=== PATIENT | female | born 1950 | race Caucasian/White ===

== ENCOUNTER → 2017-01-11 | Outpatient (CLI) | payer MEDICARE ==
[~2017-01-11] MED LIST: ACETAMINOPHEN PO; COSOPT1 UNI1 OU; FLEXERIL PO; LOVAZA1 G PO; LUMIGAN2.5 ML OU; MOTRIN IB200 M1 PO; PREMPRO 0.3 MG/1 TAB PO; TRICOR PO; ZETIA PO
--- NOTE | ~2017-01-11 | US77 ---
[facility] A Service of [facility] RADIOLOGY TEXT RESULTS PATIENT: HARIKA BOYKIN LOCATION: [facility] : 52 UNIT #: [id number] AGE: [address]: Gus Cruz MD SEX: F ORDER DR: [id number] [facility] [address] [place], [place] [address] [id number] O MR#: [id number] Acc #: [id number] NAME: HARIKA BOYKIN. : 1950 SEX: F STUDY DATE/TIME: 01/11/2017 14:13 UNIT: [facility] ROOM: STUDY DESCRIPTION: US Kidney Bilateral Complete Attending Physician: Gus Cruz M.D. Referring Physician: Gus Cruz M.D. Ordering Physician: Gus Cruz M.D. Primary Care Physician: Karthik Early Jr., M.D. MEDICAL IMAGING REPORT This report is preliminary unless electronic signature is present EXAM Renal ultrasound, 01/11/2017. HISTORY Right flank pain for 3 weeks. History of renal stones and lithotripsy August 2016, followup. FINDINGS The right kidney measured 12.2 cm, while the left kidney measured 13.7 cm in longitudinal dimensions. There is no evidence of hydronephrosis. There are nonobstructing right renal stones. There is a 1.4 cm cyst on the upper pole of the left kidney. No solid mass lesions are identified. There is normal renal cortical echogenicity. Images of the bladder are normal. IMPRESSION 1. Nonobstructing right renal stones. No evidence of hydronephrosis. 2. Left renal cyst. 3. Images of the bladder are normal. Dictated by... Mikey May M.D. THIS IS AN ELECTRONICALLY VERIFIED REPORT Mikey May M.D. at 01/12/2017 2:25 PM MIKALA/mami TD: 01/11/2017 15:29 JOB #: [id number] MEDICAL IMAGING REPORT [facility] A Service of [facility] RADIOLOGY TEXT RESULTS PATIENT: HARIKA BOYKIN LOCATION: [facility] ACC #: [id number] : 52 UNIT #: [id number] AGE: [address]: Gus Cruz MD SEX: F ORDER DR: Page 1 of 1 COPY
--- NOTE | ~2017-01-11 | CR7 ---
[facility] A Service of [facility] RADIOLOGY TEXT RESULTS PATIENT: HARIKA BOYKIN LOCATION: [facility] : 52 UNIT #: [id number] AGE: [address]: Gus Cruz MD SEX: F ORDER DR: [id number] [facility] [address] [place], [place] [address] [id number] O MR#: [id number] Acc #: [id number] NAME: HARIKA BOYKIN : 1950 SEX: F STUDY DATE/TIME: 01/11/2017 14:38 UNIT: [facility] ROOM: STUDY DESCRIPTION: CR Abdomen Single AP View Attending Physician: Gus Cruz M.D. Referring Physician: Gus Cruz M.D. Ordering Physician: Gus Cruz M.D. Primary Care Physician: Karthik Early Jr., M.D. MEDICAL IMAGING REPORT This report is preliminary unless electronic signature is present EXAM AP abdomen INDICATION Followup renal calculus COMPARISON 10/13/2016 FINDINGS No evidence of any calculi projecting over the area of the kidneys. There is a stable small calcification projecting just to the right of L3 which is indeterminate. It may be a ureteral stone or phlebolith. Stable phlebolith to the right of L4-5. Degenerative changes of the lumbar spine. Large stool burden in the colon. IMPRESSION No significant change. Dictated by... Shashi Adair M.D. THIS IS AN ELECTRONICALLY VERIFIED REPORT Shashi Adair M.D. at 01/12/2017 12:25 PM Triston TD: 01/12/2017 08:40 JOB #: [id number] MEDICAL IMAGING REPORT Page 1 of 1 COPY
== END | disposition home or self-care (01) ==
LOC: CGUS 13:53
DX: N20.0 Calculus of kidney (principal); N28.1 Cyst of kidney, acquired
CPT/HCPCS: 74000; 76770

== ENCOUNTER → 2017-03-16 | Outpatient (CLI) | payer MEDICARE | END | disposition home or self-care (01) | LOC: CECH 11:00 | DX: I34.0 Nonrheumatic mitral (valve) insufficiency (principal); I34.8 Other nonrheumatic mitral valve disorders; I36.1 Nonrheumatic tricuspid (valve) insufficiency | CPT/HCPCS: 93306 ==